=== PATIENT | male | born 1950 | race Caucasian/White ===

== ENCOUNTER 2017-11-07 10:51 | Day surgery (SDC) | payer BC, OTHER ==
[~2017-11-07] VITALS: Ht 172.7 cm; Wt 83.0 kg
[~2017-11-07 10:51] MED LIST: ADULT LOW DOSE81 M1 PO; COUMADIN6 MG PO; EXFORGE 10/31 TABLET PO; Ecotrin PO; JANUMET 50/11 TABLET PO; LIPITOR80 MG PO; LIPTRUZET PO; LO-DOSE ASPIRIN81 M2 PO; LOTREL 10/41 CAPSULE PO; Plavix PO; TYLENOL REGULA325 MG PO
[2017-11-07 12:36] LABS: POINT-OF-CARE METER ID UU13113696
[2017-11-09] MEDS ORDERED: TOPROL XL25 MG PO (16:05)
== END 2017-11-07 22:55 | disposition home or self-care (01) ==
LOC: CATH 10:51
PROVIDERS: Internal Medicine Cardiovascular Disease
DX: I25.10 Atherosclerotic heart disease of native coronary artery without angina pectoris (principal); E11.51 Type 2 diabetes mellitus with diabetic peripheral angiopathy without gangrene; I70.201 Unspecified atherosclerosis of native arteries of extremities, right leg; Z95.1 Presence of aortocoronary bypass graft; I10 Essential (primary) hypertension; E78.5 Hyperlipidemia, unspecified; Z86.73 Personal history of transient ischemic attack (TIA), and cerebral infarction without residual deficits; I48.0 Paroxysmal atrial fibrillation; Z79.01 Long term (current) use of anticoagulants; I65.23 Occlusion and stenosis of bilateral carotid arteries; Z87.891 Personal history of nicotine dependence; Z79.82 Long term (current) use of aspirin
CPT/HCPCS: 82948; C1769; C1887; C1894; J1644; J2250; J3010; J7040

== ENCOUNTER 2017-11-10 21:43 | Inpatient (IN) | payer BC, OTHER ==
[~2017-11-10] VITALS: Ht 172.7 cm; Wt 86.9 kg
[~2017-11-10 21:43] MED LIST changes: +TOPROL XL25 MG PO
[2017-11-11] VITALS (9 sets, daily range): BP systolic 109–154; BP diastolic 55–87
[2017-11-11 13:09] LABS: HEMATOCRIT 37.1 % (38.0-50.0); HEMOGLOBIN 12.7 G/DL (12.5-16.6); MCH 30.7 PG (29.0-34.0); MCHC 34.2 G/DL (30.0-36.0); MCV 89.6 FL (86-99); PLATELET COUNT 259 K/uL (156-360); RBC DIS.WIDTH-CV 13.4 % (11.8-14.6); RBC DIS.WIDTH-SD 43.8 % (39-53); RED BLOOD COUNT 4.14 M/uL (4.00-5.50); WHITE BLOOD COUNT 10.8 K/uL (4.1-10.2)
[2017-11-12] VITALS: BP 113/67
[2017-11-12 01:00] VITALS: BP 133/65
[2017-11-12 02:00] VITALS: BP 133/64
[2017-11-12 04:00] VITALS: BP 138/71
[2017-11-12 06:00] VITALS: BP 114/73
[2017-11-12] MEDS ORDERED: HYDROCODON-ACE1 EAC7 PO (07:55)
[2017-11-12 08:00] VITALS: BP 130/74
[2017-11-12 09:25] LABS: INTER. NORMALIZED RATIO 1.1
== END 2017-11-12 10:05 | disposition home or self-care (01) | DRG 39 ==
LOC: ENRESERV 21:43 → 2SOUTH 11-11 09:44 → ENRESERV 11-11 17:20 → 4WEST 11-11 19:26
PROVIDERS: Surgery
DX: I65.22 Occlusion and stenosis of left carotid artery (principal); E11.9 Type 2 diabetes mellitus without complications; R53.1 Weakness; I48.2 Chronic atrial fibrillation; I10 Essential (primary) hypertension; Z82.49 Family history of ischemic heart disease and other diseases of the circulatory system; Z83.3 Family history of diabetes mellitus; Z87.891 Personal history of nicotine dependence; Z95.1 Presence of aortocoronary bypass graft; Z86.73 Personal history of transient ischemic attack (TIA), and cerebral infarction without residual deficits
CPT/HCPCS: 36415; 82565; 82948; 84520; 85027; 85610; 87641; 90686; 93005; C1768; J0131; J0171; J0360; J0690; J1644; J1650; J1815; J2250; J2405; J2720; J2795; J3010; J7120